=== PATIENT | male | born 1980 | race Caucasian/White ===

== ENCOUNTER 2018-12-25 10:49 | Emergency (ER) | payer SELFPAY ==
[2018-12-25] MEDS ORDERED: IBUPROFEN 400 MG TABLET (FP) PO ONE ×2 (11:04→11:08)
--- NOTE | 2018-12-25 11:09 | PDOC ---
History of Present Illness - General Chief Complaint: Sore Throat Stated Complaint: SORE THROAT Time Seen by Provider: 12/25/18 10:56 History Source: Patient Exam Limitations: Language Barrier Past History - Past Medical History Allergies/Adverse Reactions: Allergies Allergy/AdvReac Type Severity Reaction Status Date / Time No Known Allergies Allergy Verified 12/25/18 10:57 Home Medications: Ambulatory Orders Enalapril Maleate [Vasotec] 20 mg PO DAILY 12/25/18 COPD: No HTN: Yes - Suicide/Smoking/Psychosocial Hx Smoking History: Never smoked Information on smoking cessation initiated: No Hx Alcohol Use: No Drug/Substance Use Hx: No *Physical Exam - Vital Signs Last Vital Signs Temp Pulse Resp BP Pulse Ox 99.1 F 98 H 19 162/115 H 97 12/25/18 10:54 12/25/18 10:54 12/25/18 10:54 12/25/18 10:54 12/25/18 10:54 - Physical Exam General Appearance: No: Apparent Distress HEENT: positive: Normal Voice, Pharyngeal Erythema. negative: Muffled/Hoarse voice, Tonsillar Exudate, Nasal Congestion, Rhinorrhea, Sinus Tenderness Respiratory/Chest: positive: Lungs Clear, Normal Breath Sounds. negative: Respiratory Distress Cardiovascular: positive: Regular Rhythm, Regular Rate, S1, S2. negative: Murmur Integumentary: positive: Normal Color Neurologic: positive: Alert, Normal Mood/Affect ED Treatment Course - Medications Given in the ED: ED Medications Discontinued Medications Generic Name Dose Route Start Last Admin Trade Name Freq PRN Reason Stop Dose Admin Ibuprofen 800 mg 12/25/18 11:04 12/25/18 11:07 Motrin - PO 12/25/18 11:05 800 mg ONCE ONE Administration Medical Decision Making - Medical Decision Making 38 y/o M with hx of HTN presents with throat pain and subjective fever x 3 days. Did not take any antipyretics today. Denies cough, rhinorrhea, ear pain, sob, cp, abd pain, n/v/d, rash. R/O strep throat Plan: Rapid strep, Motrin BP elevated - patient takes Enalapril, which he already took this AM Will recheck BP 12/25/18 11:07 Rapid strep negative Likely viral pharyngitis Repeat BP improved - advised PCP f/u for further eval; no concern for HTN emergency 12/25/18 11:45 *DC/Admit/Observation/Transfer Diagnosis at time of Disposition: Viral pharyngitis Hypertension Qualifiers: Hypertension type: essential hypertension Qualified Code(s): I10 - Essential ( primary) hypertension - Discharge Dispostion Disposition: HOME Condition at time of disposition: Stable Decision to Admit order: No - Referrals - Patient Instructions Printed Discharge Instructions: Essential Hypertension, DI for Viral Pharyngitis Additional Instructions: Thank you for choosing [facility]. It was a pleasure taking care of you. Your strep test was negative If your throat culture is positive, you will get a callback You may take Motrin 600 mg every 6 hours by mouth as needed for mild to moderate pain. Take Motrin with food. Do salt water gargles Lozenges may also help Be sure to monitor your blood pressure as it was elevated today Follow-up with your doctor in 2 days Return to the Emergency Department if your symptoms worsen or persist or have other concerning symptoms. Nahomi por elegir el [facility]. Fue un placer cuidar de ti. Guzman prueba de estreptococo fue negativa Si guzman cultura de garganta es positiva, recibir lilibeth devolucin de llamada Puede victorino Motrin 600 mg cada 6 horas por va oral segn sea necesario para el dolor leve a moderado. [place] Motrin con la comida. Hacer grgaras de agua salada Las pastillas tambin pueden ayudar Asegrese de controlar guzman presin arterial a medida que se elev hoy Seguimiento con guzman mdico en 2 hurt. Regrese al Departamento de Emergencias si ulises sntomas empeoran o persisten o si tiene otros sntomas relacionados. Print Language: ALGERIAN - Post Discharge Activity
[2018-12-25 11:30] VITALS: TEMP 99.1; BMI 26.4
[2018-12-25 11:40] VITALS: BP 152/102; PULSE 93
== END 2018-12-25 11:52 | disposition home or self-care (01) ==
LOC: JERFT 10:49
DX: J02.8 Acute pharyngitis due to other specified organisms (principal); B97.89 Other viral agents as the cause of diseases classified elsewhere; I10 Essential (primary) hypertension
CPT/HCPCS: 87070; 87077; 87880; 99281-25